=== PATIENT | female | born 1945 | race Caucasian/White ===

== ENCOUNTER 2017-06-26 00:26 | Emergency (ER) | payer OTHER ==
[~2017-06-26] VITALS: Ht 162.6 cm; Wt 89.4 kg
[~2017-06-26 00:26] MED LIST: BISOPROLOL-HCT1 EACH PO; CYMBALTA30 MG PO; KlonoPIN PO; LIPITOR20 MG PO; Lasix PO; Levothroid,Synthroid PO; PERCOGESIC PO; PriLOSEC PO; ROBAXIN750 MG PO; Vicodin,Lortab 5/500 PO; Vitamin B-12 PO
[2017-06-26 02:25] VITALS: BP 120/69
== END 2017-06-26 02:21 | disposition home or self-care (01) ==
LOC: EXP 00:26 → EME 00:26 → EXP 02:21
DX: S00.03XA Contusion of scalp, initial encounter (principal); M54.2 Cervicalgia; Y00.XXXA Assault by blunt object, initial encounter; I10 Essential (primary) hypertension; Z88.0 Allergy status to penicillin
CPT/HCPCS: 70450; 72125; 99281; 99284